=== PATIENT | female | born 1995 | race American Indian/Alaskan Native ===

== ENCOUNTER 2019-03-31 23:04 | Emergency (ER) | payer OTHER ==
[2019-04-01] MEDS ORDERED: HYDROcodone/ACETAMINOPHEN 5-325 MG TAB PO ONE (00:26)
[2019-04-01] MEDS ORDERED: IBUPROFEN 800 MG TAB PO ONE (00:27)
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
--- NOTE | 2019-04-01 00:47 | XRay Report ---
LEFT SHOULDER 3 VIEWS INDICATION / CLINICAL INFORMATION: LEFT SHOULDER PAIN COMPARISON: None available. FINDINGS: BONES / JOINT(S): No acute fracture or subluxation. No significant arthritis. SOFT TISSUES: No significant abnormality. ADDITIONAL FINDINGS: None. Signer Name: Johan Mayberry MD Signed: 04/01/2019 12:43 AM Workstation Name: [id number]
[2019-04-01 01:21] VITALS: BP 140/77
== END 2019-04-01 01:21 | disposition home or self-care (01) ==
LOC: EDBD → ED 23:04
DX: S16.1XXA Strain of muscle, fascia and tendon at neck level, initial encounter (principal); S43.402A Unspecified sprain of left shoulder joint, initial encounter; Z79.899 Other long term (current) drug therapy; V47.5XXA Car driver injured in collision with fixed or stationary object in traffic accident, initial encounter; Y93.89 Activity, other specified; Y92.410 Unspecified street and highway as the place of occurrence of the external cause; Y99.8 Other external cause status
CPT/HCPCS: 72040